=== PATIENT | male | born 1950 | race Caucasian/White ===

== ENCOUNTER → 2018-02-15 | Outpatient (CLI) | payer MEDICARE ==
--- NOTE | 2018-02-23 10:50 | P.ARTDOP ---
Arterial Doppler LOWER EXTREMITY ARTERIAL DOPPLER: DATE OF SERVICE: 02/15/2018 Reason for study: Right calf claudication. Doppler waveforms: Multiphasic at the femoral level on the right and throughout on the left. Atypical below the femoral on the right.. Pulse volume recording: []. Pressure gradients: Across the thigh on the right and mild distal gradient on the left.. Ankle-brachial indices: 0.57 on the right and 0.91 on the left.. Toe pressures: [] on the right, [] on the left Impression: Moderate right femoral popliteal occlusive disease. Mild distal disease on the left. Correlates with claudication. Clinical correlation and vascular surgical consult should be considered..
== END | disposition home or self-care (01) ==
LOC: RADUSWWP 14:12
PROVIDERS: ATTEND Family Medicine
DX: M79.659 Pain in unspecified thigh (principal); I70.201 Unspecified atherosclerosis of native arteries of extremities, right leg
CPT/HCPCS: 93922; 93923

== ENCOUNTER → 2018-02-16 | Outpatient (CLI) | payer MEDICARE ==
--- NOTE | 2018-02-16 15:26 | CTL ---
EXAMINATION TYPE: CT Low Dose Lung DATE OF EXAM ORDERED: 02/16/2018 HISTORY: Personal history of tobacco abuse. Lung cancer screening CT DLP: 74 mGycm Automated exposure control for dose reduction was used. SCREENING VISIT: Initial COMPARISON: None TECHNIQUE: Low dose computed tomography scan was performed through the chest at 1 mm thick sections a nd reconstructed images in the coronal plane at [address] DIAGNOSTIC QUALITY: Limited, but interpretable FINDINGS: LUNG NODULES: There is a 5 mm solid nodule within the right middle lobe on series 5 image 145 located peripherally. This is hyperdense foci however does not appear to have calcifications on soft tissue windows. LUNGS: COPD: Severity: Mild centrilobular Fibrosis: Severity: None Lymph nodes: No adenopathy Other findings: There is mild left basilar subsegmental atelectasis. Peribronchial cuffing is seen th roughout most pronounced within the inferior lobes. This may be seen in bronchitis or reactive airway disease of COPD. RIGHT PLEURAL SPACE: Effusion: None Calcification: None Thickening: None Pneumothorax: None LEFT PLEURAL SPACE: Effusion: None Calcification: None Thickening: None Pneumothorax: None HEART: Heart Size: Ascending thoracic aorta is upper limits normal size measuring 3.8 cm. Heart is within no rmal limits. Coronary calcification: Minimal Pericardial effusion: None OTHER FINDINGS: Upper abdomen: Grossly unremarkable in unenhanced morphology. Bony thorax: Mild multilevel degenerative changes of the thoracic spine are seen. Supraclavicular region: No adenopathy Other: There is normal variant direct origin of the left vertebral artery from the aortic arch. There is a moderate to large hiatal hernia. IMPRESSION: 1. Solitary solid 5 mm right middle lobe pulmonary nodule corresponding to a LUNG RADS 2-benign appea nakia or behavior-nodules with a very low likelihood of becoming a clinically active cancer due to la ck of size-continued annual screening 12 months with low dose CT is recommended. 2. Mild background centrilobular emphysematous change with diffuse mild peribronchial cuffing that ca n be seen in bronchitis or reactive airway disease. FOLLOW UP CT CHEST RECOMMENDATION: Annual screening low dose CT is recommended in [address] LUNG RAD: Lung-Rad 2 Benign Appearance or Behavior
== END ==
LOC: RADCTMAIN 13:21
PROVIDERS: ATTEND Family Medicine
DX: R91.1 Solitary pulmonary nodule (principal); J43.9 Emphysema, unspecified; Z87.891 Personal history of nicotine dependence

== ENCOUNTER → 2018-02-25 | Outpatient (CLI) | payer MEDICARE ==
[~2018-02-25] MED LIST: DOBUTamine DRIP for NUC MED 500 MG in DEXTROSE/WATER 1 250ML.BAG IV ONE
--- NOTE | 2018-02-25 18:37 | P.STRESS ---
- Stress Test Note Stress Test Results/Findings: Exam Performed: dobutamine stress echo Exam Date: 02/25/18 Reason for Exam: Dyspnea Height: 5 ft 11 in Weight: 87.09 kg Protocol: Dobutamine Stress Echo Stage: III Duration of Exercise: 7:30 Resting Heart Rate: 71 Resting Blood Pressure: 108/73 Maximum Achieved Heart Rate: 136 Maximum Achieved Blood Pressure: 121/81 85% PMHR: 132 100% PMHR: 155 METS: n/a Technologist Comment: Stress Test Results/Findings: This is a 67-year-old gentleman with history of hypertension and smoking history , being evaluated for symptoms of shortness of breath. Stress data: Baseline EKG showed sinus rhythm with normal [place] interval, QRS duration. Blood pressure at rest is 108/73. A standard dose of dobutamine was initiated and was titrated to 30 mics, achieving a maximal heart rate of 128 with a blood pressure 121/81. Peak heart rate of 136 was achieved in the immediate post exercise period. EKGs taken during and after the dobutamine infusion did not reveal any changes to suggest ischemia. Patient developed mild hypotension in the post exercise period , which he gradually improved. Patient did not express any chest pain. Echo data: Baseline echo images showed normal wall motion and thickening. Exercise echo images showed augmentation of wall motion and thickening in all the segments. Final impression: #1. Negative dobutamine stress test #2. Negative dobutamine stress echo.
--- NOTE | 2018-03-01 14:04 | ECHOS ---
Stress Test Results/Findings: Exam Performed: dobutamine stress echo Exam Date: 02/25/18 Reason for Exam: Dyspnea Height: 5 ft 11 in Weight: 87.09 kg Protocol: Dobutamine Stress Echo Stage: III Duration of Exercise: 7:30 Resting Heart Rate: 71 Resting Blood Pressure: 108/73 Maximum Achieved Heart Rate: 136 Maximum Achieved Blood Pressure: 121/81 85% PMHR: 132 100% PMHR: 155 METS: n/a Technologist Comment: Stress Test Results/Findings: This is a 67-year-old gentleman with history of hypertension and smoking history , being evaluated for symptoms of shortness of breath. Stress data: Baseline EKG showed sinus rhythm with normal [place] interval, QRS duration. Blood pressure at rest is 108/73. A standard dose of dobutamine was initiated and was titrated to 30 mics, achieving a maximal heart rate of 128 with a blood pressure 121/81. Peak heart rate of 136 was achieved in the immediate post exercise period. EKGs taken during and after the dobutamine infusion did not reveal any changes to suggest ischemia. Patient developed mild hypotension in the post exercise period , which he gradually improved. Patient did not express any chest pain. Echo data: Baseline echo images showed normal wall motion and thickening. Exercise echo images showed augmentation of wall motion and thickening in all the segments. Final impression: #1. Negative dobutamine stress test #2. Negative dobutamine stress echo. BRAVO
== END | disposition home or self-care (01) ==
LOC: RADNMMAIN 09:45
PROVIDERS: ATTEND Family Medicine
DX: R06.00 Dyspnea, unspecified (principal)
CPT/HCPCS: 93351; J1250

== ENCOUNTER 2018-03-23 10:57 | Day surgery (SDC) | payer MEDICARE ==
[2018-03-18 15:19] VITALS: BMI 27.3
[~2018-03-23 10:57] MED LIST changes: -DOBUTamine DRIP for NUC MED 500 MG in DEXTROSE/WATER 1 250ML.BAG IV ONE; +LACTATED RINGERS 1,000 ML IV SCH; +LIDOCAINE 1% 20 ML VIAL (10MG/ML) FOR IV START INTRADERMA PRN; +MIDAZOLAM 2 MG/2 ML VIAL IV PRN
[2018-03-23 12:15] VITALS: RESP 16; TEMP 98.1
[2018-03-23] MEDS ORDERED: PROPOFOL 10 MG/ML 20 ML VIAL IV ONE (13:10)
[2018-03-23] MEDS ORDERED: LIDOCAINE 1% INJ 10MG/ML (20 ML MDV) ONE (13:10)
--- NOTE | 2018-03-23 13:45 | P.PCN ---
Date of Procedure: 03/23/18 Procedure(s) Performed: Procedure: Colonoscopy and polypectomy. Preoperative diagnosis: Screening for neoplasia. Postoperative diagnosis: 1. Two polyps snared and retrieved by suction but no large polyps or cancer. 2. Diverticulosis with no evidence of acute diverticulitis or strictures. Preparation: HalfLytely prep. Sedation: Was provided by anesthesia. Brief clinical history: The patient is a 67-year-old male who is scheduled for this evaluation for screening for neoplasia age being his risk factor. His prior exam was around 15 years ago. At this time, he has no new abdominal symptoms, bleeding or anemia. He notes blood on the stools on the if he has a hard bowel movement and strains. Procedure: With the patient on his left lateral decubitus position and after informed consent and adequate sedation, the perianal area was inspected and it did not show any fissures or fistulas. There were no masses felt on digital rectal examination. The Olympus CFQ 160L video colonoscope was then inserted in the rectum in the usual fashion and advanced to the cecum. The preparation was less than ideal with thick fecal secretions and fecal material that at times would not wash off the bowel wall completely. the rectum and one in the proximal ascending colon each measuring between 1-1/2 cm which were snared and retrieved by suction but there were no large polyps or cancer. There was multiple diverticular orifices seen scattered in the sigmoid with no evidence of acute diverticulitis or strictures. I retroflexed the endoscope in the rectum before the endoscope was withdrawn. Low-grade internal hemorrhoids were noted with no evidence of bleeding. The patient tolerated the procedure well. Plan: The patient was reassured. Discussed dietary measures. He will follow up with you as planned and I recommended repeat exam in 2-3 years.
[2018-03-23 14:01] VITALS: BP 141/86; PULSE 88
== END 2018-03-23 14:50 | disposition home or self-care (01) ==
LOC: ORWHC2ENDO 10:57
DX: Z12.11 Encounter for screening for malignant neoplasm of colon (principal); D12.2 Benign neoplasm of ascending colon; D12.8 Benign neoplasm of rectum; K57.30 Diverticulosis of large intestine without perforation or abscess without bleeding; K64.8 Other hemorrhoids; I10 Essential (primary) hypertension; E78.5 Hyperlipidemia, unspecified; F17.210 Nicotine dependence, cigarettes, uncomplicated; Z85.46 Personal history of malignant neoplasm of prostate; Z90.79 Acquired absence of other genital organ(s); Z79.899 Other long term (current) drug therapy
CPT/HCPCS: 88305; 45385; J2001; J2704

== ENCOUNTER 2018-04-12 06:11 | Day surgery (SDC) | payer MEDICARE ==
[~2018-04-12 06:11] MED LIST changes: +ALPRAZolam 0.25 MG TAB PO PRN; +ASPIRIN 325 MG TAB PO STA; -LACTATED RINGERS 1,000 ML IV SCH; -LIDOCAINE 1% 20 ML VIAL (10MG/ML) FOR IV START INTRADERMA PRN; -MIDAZOLAM 2 MG/2 ML VIAL IV PRN; +SODIUM CHLORIDE 0.9% 1,000 ML in EMPTY BAG 1 BAG IV ONE
[2018-04-12] MEDS ORDERED: SODIUM CHLORIDE 0.9% 1,000 ML IV ONE (06:47)
[2018-04-12 07:09] VITALS: TEMP 97.7
[2018-04-12] MEDS ORDERED: MIDAZOLAM 2 MG/2 ML VIAL IV ONE (07:50)
[2018-04-12] MEDS ORDERED: LIDOCAINE 1% INJ 10MG/ML (20 ML MDV) SQ ONE ×2 (07:50)
[2018-04-12] MEDS ORDERED: IOPAMIDOL-250 100ML BTL INTRAARTER ONE (08:01)
[2018-04-12] MEDS ORDERED: SODIUM CHLORIDE 0.9% 1,000 ML IV SCH (08:15)
[2018-04-12 09:33] VITALS: RESP 18
--- NOTE | 2018-04-12 10:08 | AN ---
ANGIOGRAPHY REPORT DATE OF SERVICE: April 12, 2018 PERFORMING PHYSICIAN: Allen Sanon MD, express clerk. PROCEDURE PERFORMED: 1. An abdominal aortogram. 2. Bilateral lower extremities runoff. INDICATION: This is a pleasant 67-year-old gentleman who sees Dr. Park as an outpatient who was referred to me for further evaluation of peripheral arterial disease and right leg intermittent claudication. The patient is scheduled to undergo an abdominal aortogram and bilateral lower extremities runoff. APPROACH: Right common femoral artery. COMPLICATION: None. LEVEL OF SEDATION: Moderate with sedation length of 10 minutes. PROCEDURE DESCRIPTION: After obtaining an informed consent, the patient was brought to the cardiac labor expediter. The right common femoral artery was cannulated using micropuncture technique, the micropuncture wire passed easily, then I placed a 6-Urdu sheath in the right common femoral artery. After that, I did an abdominal aortogram and bilateral lower extremities runoff using 5-Urdu pigtail catheter which was initially placed at the level of the renal arteries then it was pulled into above the bifurcation of the aorta to right and left common iliac arteries. The procedure was completed without any complication. SELECTIVE PERIPHERAL ANGIOGRAM: 1. The abdominal aorta appeared to have mild disease only. 2. Common Iliac Arteries: The right common iliac artery appeared to be angiographically normal. The left common iliac artery appeared to be angiographically normal as well. 3. External Iliac Arteries: The right and left external iliac arteries appear to have mild disease only. 4. Internal Iliac Arteries: Right and left internal iliac arteries are patent. 5. Common Femoral Arteries: The right and left common femoral arteries have mild disease only. 6. Profunda: The right and left profunda are patent. 7. SFA: The right SFA is occluded in the distal portion on short segment of chronic total occlusion and the left SFA appeared to have mild disease only. 8. Popliteal: The right popliteal has mild disease only and the left popliteal appeared to have a lesion in the range of 50% to 60%. 9. Below the Knee: There are 3 vessels runoff below the knee bilaterally. CONCLUSION: 1. Mild aortoiliac disease. 2. Occluded right SFA on short segment in the distal portion. 3. Intermediate disease involving the left popliteal artery. 4. A 3 vessel runoff below the knee bilaterally. POSTPROCEDURE MANAGEMENT: 1. Maximize medical treatment. 2. EVENT DECORATOR AND DESIGNER of the right SFA. MMODL / IJN: [id number] /
[2018-04-12 10:15] VITALS: BMI 27.6
--- NOTE | 2018-04-12 10:23 | LTR ---
April 12, 2018 Dr. Park Re: Jun Zuñiga Dear Dr. Park: Mr. Jun Zuñiga underwent an abdominal aortogram and bilateral lower extremity runoff and that revealed occluded right femoral artery in the distal portion. He will be scheduled to undergo a VALET of the right SFA in the next few days. Thank you for allowing me to participate in his care. Please do not hesitate to contact me if you have any questions or concerns. Sincerely, MD BELLA Cartwright / GEORGEN: [id number] /
[2018-04-12 12:21] VITALS: BP 133/84; PULSE 63
== END 2018-04-12 14:35 | disposition home or self-care (01) ==
LOC: CATHCVL 06:11 → 3OBS 08:00 → CATHCVL 14:35
PROVIDERS: ATTEND Internal Medicine Interventional Cardiology
DX: I70.213 Atherosclerosis of native arteries of extremities with intermittent claudication, bilateral legs (principal); I70.92 Chronic total occlusion of artery of the extremities; I10 Essential (primary) hypertension; E78.5 Hyperlipidemia, unspecified; F17.210 Nicotine dependence, cigarettes, uncomplicated; Z79.899 Other long term (current) drug therapy
CPT/HCPCS: 36200; 75625; 75716; C1769 ×4; C1894; J2250; J2001; Q9966

== ENCOUNTER → 2018-05-25 | Outpatient (CLI) | payer MEDICARE ==
--- NOTE | 2018-05-25 10:06 | US ---
EXAMINATION TYPE: US duplex aorta DATE OF EXAM: 05/25/2018 COMPARISON: IR angio abdominal runoff dated 04/12/2018 CLINICAL HISTORY: Z13.6 Screening abd aortic aneurysm. EXAM MEASUREMENTS: Abdominal Aorta: Proximal: 2.4 x 2.2 cm Mid: 2.1 x 1.9 cm Distal: 2.1 x 1.9 cm Bifurcation: RT 0.7 x 0.9 cm LT 0.6 x 1.0 cm Extremely difficult and limited exam due to large amount of overlying bowel gas. Visualized portions of proximal aorta appear ectatic, grayscale, color Doppler and spectral Doppler imaging performed. IMPRESSION: Exam is limited. Abdominal aortic aneurysm is not evident
== END ==
LOC: RADUSWWP 07:20
PROVIDERS: ATTEND Family Medicine
DX: Z13.6 Encounter for screening for cardiovascular disorders (principal)
CPT/HCPCS: 93979

== ENCOUNTER → 2019-03-24 | Outpatient (CLI) | payer MEDICARE ==
--- NOTE | 2019-03-24 12:24 | CTL ---
EXAMINATION TYPE: CT Low Dose Lung DATE OF EXAM ORDERED: 03/24/2019 HISTORY: . Lung cancer screening CT DLP: 139.[address] CTDI: 3.8 mGy Automated exposure control for dose reduction was used. SCREENING VISIT: Subsequent COMPARISON: 02/16/2018 TECHNIQUE: Low dose computed tomography scan was performed through the chest at 1 mm thick sections a nd reconstructed images in the coronal plane at [address] DIAGNOSTIC QUALITY: Satisfactory FINDINGS: LUNG NODULES: Present, detailed below: There is a 0.5 cm peripheral middle right middle lobe periphery. Series 4 image 167. This was present previously and stable. LUNGS: COPD: Severity: None Fibrosis: Severity: None Lymph nodes: None Other findings: None RIGHT PLEURAL SPACE: Effusion: None Calcification: None Thickening: None Pneumothorax: None LEFT PLEURAL SPACE: Effusion: None Calcification: None Thickening: None Pneumothorax: None HEART: Heart Size: Normal Coronary calcification: None Pericardial effusion: None OTHER FINDINGS: Upper abdomen: Normal Bony thorax: Normal Supraclavicular region: Normal Other: Ascending thoracic aorta at the level the main pulmonary artery measures 4.0 cm. The main pulm onary bifurcation measures 2.1 cm. IMPRESSION: 1. Probably benign findings 2. Stable 4.0 cm ascending thoracic aortic aneurysm. FOLLOW UP CT CHEST RECOMMENDATION: Follow-up the chest [address] LUNG RAD: Lung-Rad 3 Probably Benign
== END | disposition home or self-care (01) ==
LOC: RADCTMAIN 11:14
PROVIDERS: ATTEND Family Medicine
DX: Z12.2 Encounter for screening for malignant neoplasm of respiratory organs (principal); I71.2 Thoracic aortic aneurysm, without rupture; Z87.891 Personal history of nicotine dependence

== ENCOUNTER → 2023-10-28 | Outpatient (CLI) | payer MEDICARE ==
[2023-10-28 15:11] LABS: African American GFR (CKD) 71 (>60 ml/min/1.73 sqM); Blood Urea Nitrogen 15 mg/dL (9-20); Non-African American GFR(CKD) 62 (>60 ml/min/1.73 sqM)
--- NOTE | 2023-10-28 16:09 | CT ---
Exam: CT Angiography of the Chest. Date: 10/28/2023. Comparison: 03/24/2019. History: Aortic aneurysm. Technique: CT examination of the chest was performed without and following the intravenous administra tion of 100 mL of Isovue-370. CT dose lowering techniques were used, to include: automated exposure c ontrol, adjustment for patient size, and/or use of iterative reconstruction. FINDINGS: Mediastinum and Nicolette: There is no axillary, mediastinal or hilar lymphadenopathy. Pleural and Pericardial spaces: There are no pleural or pericardial effusions. Upper Abdomen: There is a large hiatal hernia. The visualized upper abdomen otherwise appears unremar kable. Cardiovascular: There is mild vascular calcification moderate plaque seen throughout the thoracic aor ta without evidence of aneurysmal dilation or dissection. The ascending thoracic aorta at the level o f the main pulmonary artery measures approximately 3.4 cm in diameter. Pulmonary Artery: There are no filling defects in the pulmonary arteries. Lung Parenchyma and Airways: There is moderate to severe diffuse centrilobular emphysema. Scattered b ronchial wall thickening and inflammatory airway changes noted. There are no suspicious pulmonary nod ules. Bones: No fracture or aggressive osseous lesion. IMPRESSION: 1. No evidence of pulmonary embolism. 2. No evidence of thoracic aortic aneurysm or dissection. 3. Emphysema. 4. Large hiatal hernia. 5. Inflammatory airway changes.
== END | disposition home or self-care (01) ==
LOC: RADCTMAIN 14:33
PROVIDERS: ATTEND Internal Medicine Interventional Cardiology
DX: K44.9 Diaphragmatic hernia without obstruction or gangrene (principal); J43.2 Centrilobular emphysema; I71.40 Abdominal aortic aneurysm, without rupture, unspecified; J06.9 Acute upper respiratory infection, unspecified
CPT/HCPCS: 82565; 84520; 71275; 36415; Q9967

== ENCOUNTER 2024-01-08 10:34 | Day surgery (SDC) | payer MEDICARE ==
[2024-01-06 13:22] VITALS: BMI 26.7
[~2024-01-08 10:34] MED LIST changes: -ALPRAZolam 0.25 MG TAB PO PRN; -ASPIRIN 325 MG TAB PO STA; +LIDOCAINE 1% (10MG/ML) FOR IV START INTRADERMA PRN; -SODIUM CHLORIDE 0.9% 1,000 ML in EMPTY BAG 1 BAG IV ONE
[2024-01-08] MEDS: LACTATED RINGERS 1,000 ML IV SCH (11:37)
[2024-01-08 11:52] VITALS: TEMP 97.2
[2024-01-08] MEDS ORDERED: PROPOFOL 10 MG/ML 20 ML VIAL IV ONE (12:28)
--- NOTE | 2024-01-08 12:50 | P.PCN ---
Date of Procedure: 01/08/24 Procedure(s) Performed: BRIEF HISTORY: Patient is a 73-year-old pleasant white male scheduled for an elective colonoscopy as a part of screening for colon cancer and positive Cologuard. Last colonoscopy was 6 years ago. PROCEDURE PERFORMED: Colonoscopy. PREOPERATIVE DIAGNOSIS: Screening for colon cancer/positive Cologuard. IV sedation per Anesthesia. PROCEDURE: After informed consent was obtained, the patient, was brought into the endoscopy unit. IV sedation was administered by Anesthesia under continuous monitoring. Digital rectal examination was normal. Initially the Olympus CF-160 flexible video colonoscope was then inserted in the rectum, gradually advanced into the cecum without any difficulty. Careful examination was performed as the scope was gradually being withdrawn. Ileocecal valve and the appendiceal orifice were visualized and appeared normal. Prep was excellent. Mucosa of the cecum, ascending colon, transverse colon, descending colon, sigmoid colon, and rectum appeared normal. Scattered sigmoid diverticulosis. Retroflexion was performed in the rectum and grade 2 internal hemorrhoid were seen. The patient tolerated the procedure well. IMPRESSION: Normal-appearing colon from rectum to cecum with no evidence of colorectal neoplasia Scattered sigmoid diverticulosis Grade 2 internal hemorrhoids. RECOMMENDATIONS: Findings of this examination were discussed with the patient as well as his family. He was advised to have repeat screening colonoscopy in 10 years..
[2024-01-08 13:16] VITALS: RESP 16
[2024-01-08 14:01] VITALS: BP 132/74; PULSE 79
== END 2024-01-08 13:47 | disposition home or self-care (01) ==
LOC: ORWHC2ENDO 10:34
PROVIDERS: ATTEND Internal Medicine Gastroenterology
DX: K57.30 Diverticulosis of large intestine without perforation or abscess without bleeding (principal); K64.1 Second degree hemorrhoids; I10 Essential (primary) hypertension; E78.5 Hyperlipidemia, unspecified; I73.9 Peripheral vascular disease, unspecified; Z95.5 Presence of coronary angioplasty implant and graft; J44.9 Chronic obstructive pulmonary disease, unspecified; F17.210 Nicotine dependence, cigarettes, uncomplicated; M19.90 Unspecified osteoarthritis, unspecified site; K21.9 Gastro-esophageal reflux disease without esophagitis; Z79.01 Long term (current) use of anticoagulants; Z79.899 Other long term (current) drug therapy; Z98.890 Other specified postprocedural states
CPT/HCPCS: 45378; J2704

== ENCOUNTER → 2024-12-30 | Outpatient (CLI) | payer MEDICARE ==
--- NOTE | 2024-12-30 14:18 | CT ---
EXAMINATION TYPE: CT sinus wo con DATE OF EXAM: 12/30/2024 1:45 PM COMPARISON: None. CLINICAL INDICATION: Male, 74 years old with history of J32.4 CHRONIC PANSINUSITIS; , Chronic pansinu sitis. Frequent headaches. TECHNIQUE: Multiple thin axial images were obtained through the paranasal sinuses. Additional coronal and sagittal reformatted images were submitted for evaluation. Contrast used: none Oral contrast used: none CT DLP: 572 mGycm, Automated exposure control for dose reduction was used. FINDINGS: Frontal sinuses: Normally developed and aerated. Frontal Recess: Clear Maxillary Sinuses: Normally developed and aerated. Maxillary Infundibula([facility]): clear, No Aaron cells identified. Ethmoid sinuses: Normally developed and aerated. Ethmoidal notch: Unprotected bilateral anterior eth moidal arteries. Sphenoid sinuses: Normally developed and aerated. There is sellar sphenoid sinus pneumatization with out evidence of dehiscence. No dehiscence of carotid canal. No evidence of optic nerve dehiscence wi thin the sphenoid sinus. No evidence of Onodi cells. Sphenoethmoidal recesses: Clear. Nasal septum: Mildly deviated leftward extending towards the inferior turbinate with bony spurring pr esent.. Nasal Turbinates: Within normal limits. Mastoid air cells & middle ears: The air cells are clear. The middle ears are grossly unremarkable. Modified Soft tissues & Brain: Partially seen without gross abnormality. Globes are intact. Other: Cribriform plate demonstrates symmetric Keros classification type 3 cribriform plate. No evidence of bony dehiscence of skull base. Lamina papyracea is intact without evidence of remote orbital fracture or orbital prolapse into the e thmoid sinus. Atherosclerosis of the intracranial vasculature. IMPRESSION: 1. No significant mucosal sinus disease. 2. The ostiomeatal units, frontonasal and sphenoethmoidal recesses are clear. [facility], , 12/30/2024 2:15 PM
== END | disposition home or self-care (01) ==
LOC: RADCTMAIN 13:30
PROVIDERS: ATTEND Family Medicine
DX: J32.4 Chronic pansinusitis (principal)
CPT/HCPCS: 70486